=== PATIENT | male | born 1985 | race Two or more races ===

== ENCOUNTER 2021-05-04 11:12 | Emergency (ER) | payer OTHER ==
[~2021-05-04] VITALS: Ht 175.3 cm; Wt 88.6 kg
[~2021-05-04 11:12] MED LIST: ARIP15TA27
[2021-05-04] MEDS ORDERED: BUSP15 PO (11:18)
[2021-05-04] MEDS ORDERED: PALI234D IM (11:18)
[2021-05-04] MEDS ORDERED: ACETAMINOPHEN 500 MG TABLET PO ONE (12:15)
[2021-05-04 13:39] VITALS: BP 133/81
== END 2021-05-04 13:40 | disposition home or self-care (01) ==
LOC: EMS 11:12
DX: S00.83XA Contusion of other part of head, initial encounter (principal); S80.01XA Contusion of right knee, initial encounter; F20.9 Schizophrenia, unspecified; W01.0XXA Fall on same level from slipping, tripping and stumbling without subsequent striking against object, initial encounter; Y93.89 Activity, other specified; Y92.89 Other specified places as the place of occurrence of the external cause; Y99.8 Other external cause status
CPT/HCPCS: 99283